=== PATIENT | female | born 1955 | race Caucasian/White ===

== ENCOUNTER 2022-12-27 13:46 | Emergency (ER) | payer MEDICAID, OTHER ==
[~2022-12-27] VITALS: Ht 165.1 cm; Wt 90.9 kg
[~2022-12-27 13:46] MED LIST: CIPR-278 PO; METR500 PO
[2022-12-27] MEDS ORDERED: CEPHALEXIN MONOHYDRATE 500 MG CAPSULE PO ONE (14:45)
[2022-12-27] MEDS ORDERED: ONDANSETRON HCL 4 MG/2 ML VIAL IM ONE (14:45)
[2022-12-27] MEDS ORDERED: DOXYCYCLINE HYCLATE 100 MG TABLET PO ONE (14:45)
[2022-12-27] MEDS ORDERED: MORPHINE SULFATE 4 MG/ML SYRINGE IM ONE (14:45)
[2022-12-27] MEDS ORDERED: LIDOCAINE 1% 10 ML VIAL SQ ONE (14:45)
[2022-12-27] MEDS ORDERED: CEPH-558 PO (15:40)
[2022-12-27] MEDS ORDERED: DOXY-354 PO (15:40)
[2022-12-27] MEDS ORDERED: ACET-2080 PO (15:40)
[2022-12-27 16:04] VITALS: TEMP 97.8
[2022-12-27 16:24] VITALS: BP 117/65; PULSE 67; RESP 16
[2022-12-28 07:46] LABS: GLUCOMETER DEV NAME(LOC) ERT.5; GLUCOSE,POINT OF CARE 112 MG/DL (70-110)
== END 2022-12-27 16:31 | disposition home or self-care (01) ==
LOC: EMS 13:50
DX: L02.31 Cutaneous abscess of buttock (principal); Z90.710 Acquired absence of both cervix and uterus
CPT/HCPCS: 99284; 10060; 82962; 96372; J2270; J2405; J3490

== ENCOUNTER 2024-10-28 18:32 | Emergency (ER) | payer MEDICAID, OTHER ==
[~2024-10-28] VITALS: Ht 165.1 cm; Wt 91.0 kg
[~2024-10-28 18:32] MED LIST changes: +ACET-2080 PO; +CEPH-558 PO; +DOXY-354 PO
[2024-10-28 18:44] VITALS: BP 156/81; PULSE 85; RESP 18; TEMP 98.6; O2SAT 99
== END 2024-10-28 20:43 | disposition left against medical advice (07) ==
LOC: EMS 18:52
DX: R51.9 Headache, unspecified (principal); Z53.21 Procedure and treatment not carried out due to patient leaving prior to being seen by health care provider

== ENCOUNTER 2025-01-16 12:00 | Emergency (ER) | payer MEDICAID, OTHER ==
[~2025-01-16] VITALS: Ht 166.4 cm; Wt 86.4 kg
[2025-01-16 12:16] VITALS: BP 130/89; PULSE 82; RESP 18; TEMP 97.3; O2SAT 98
[2025-01-16] MEDS: LIDOCAINE 5% TRANSDERMAL PATCH TD ONE (13:41)
[2025-01-16] MEDS: KETOROLAC TROMETHAMINE 30 MG/ML VIAL IM ONE (13:41)
[2025-01-16] MEDS ORDERED: METH-659 PO (14:35)
== END 2025-01-16 14:37 | disposition home or self-care (01) ==
LOC: EMS 12:00
DX: M54.12 Radiculopathy, cervical region (principal); F17.210 Nicotine dependence, cigarettes, uncomplicated; Z90.710 Acquired absence of both cervix and uterus
CPT/HCPCS: 99283; 96372; J1885